=== PATIENT | female | born 1960 | race Caucasian/White ===

== ENCOUNTER 2019-01-01 14:15 | Emergency (ER) | payer MEDICAID ==
[2019-01-01 14:16] VITALS: BMI 29.8
[2019-01-01 14:35] VITALS: TEMP 98.5
[2019-01-01] MEDS ORDERED: Albuterol 0.083% Inhal Sol (2.5 mg/3 mL) UD INH STA (15:10)
--- NOTE | 2019-01-01 15:15 | ED PDOC ---
Arrival/HPI - General Chief Complaint: Flu-like Symptoms Time Seen by Provider: 01/01/19 14:16 Historian: Patient - History of Present Illness Narrative History of Present Illness (Text): 01/01/19 15:11 Patient is a 58-year-old female with a past medical history significant for rheumatoid arthritis. Presenting to [facility] on January 01, 2019 with complaints of flu like symptoms. Patient reports onset approximately two weeks ago denies any sick contact. She reports complaints of headaches, shortness of breath productive cough with clear sputum, Arthralgias, chills. Reports some episodes of associated nausea. Denies any sore throat, fevers. Reminder 12 system review of systems otherwise negative. She has not seen any other physicians at this time, has not had any outpatient follow-up, has not received any outpatient treatment. Denies any childhood history of asthma. Past Medical History - Provider Review Nursing Documentation Reviewed: Yes - Past History Past History: No Previous - Infectious Disease Hx of Infectious Diseases: None - Reproductive Menopause: Yes - Cardiac Hx Cardiac Disorders: No - Psychiatric Hx Depression: Yes Hx Emotional Abuse: No Hx Physical Abuse: No Hx Substance Use: No - Past Surgical History Past Surgical History: Non-Contributing - Anesthesia Hx Anesthesia: No - Suicidal Assessment Feels Threatened In Home Enviroment: No Family/Social History - Physician Review Nursing Documentation Reviewed: Yes Family/Social History: Unknown Family HX Smoking Status: Unknown If Ever Smoked Hx Alcohol Use: No Hx Substance Use: No Hx Substance Use Treatment: No Allergies/Home Meds Allergies/Adverse Reactions: Allergies No Known Allergies Allergy (Verified 01/12/13 16:55) Home Medications: Home Meds Medication Instructions Recorded Confirmed Gabapentin 0 mg PO 01/12/13 01/12/13 Sertraline HCl [Sertraline] 0 mg PO 01/12/13 01/12/13 Review of Systems - Review of Systems Constitutional: Normal. absent: Fevers Eyes: Normal ENT: Normal Respiratory: SOB, Cough, Sputum Gastrointestinal: Nausea Musculoskeletal: Arthralgias Skin: Normal Neurological: Headache Endocrine: Normal Hemo/Lymphatic: Normal Psychiatric: Normal Physical Exam Vital Signs Reviewed: Yes Vital Signs Temp Pulse Resp BP Pulse Ox 01/01/19 14:29 98.5 F 82 20 135/78 100 Temperature: Afebrile Blood Pressure: Normal Pulse: Regular Respiratory Rate: Normal Appearance: Positive for: Well-Appearing, Non-Toxic Pain Distress: None Mental Status: Positive for: Alert and Oriented X 3 - Systems Exam Head: Present: Atraumatic, Normocephalic, Tenderness (L maxillary sinus tap tenderness) Pupils: Present: PERRL Extroacular Muscles: Present: EOMI Ears: Present: Normal Mouth: Present: Moist Mucous Membranes Pharnyx: Present: Normal Neck: Present: Lymphadenopathy Respiratory/Chest: Present: Clear to Auscultation, Good Air Exchange. No: Respiratory Distress Cardiovascular: Present: Normal S1, S2. No: Murmurs Abdomen: Present: Normal Bowel Sounds. No: Tenderness Upper Extremity: Present: Normal Inspection Lower Extremity: Present: Normal Inspection, NORMAL PULSES Neurological: Present: GCS=15, CN II-XII Intact Skin: Present: Warm, Dry, Normal Color Psychiatric: Present: Alert, Oriented x 3 Medical Decision Making ED Course and Treatment: 01/01/19 15:21 Will perform rapid flu test, CBC, CMP, chest x-ray. breathing treatment mucolytic supportive care Will reassess after. 01/01/19 17:13 CBC, CMP unremarkable Rapid flu negative Chest x-ray reported as no active cardio pulmonary disease Most likely viral upper respiratory tract infection, viral sinusitis Will discharge patient home Recommend supportive care Tylenol, cough suppressant, mucolytic, rest hydration Tamiflu x 5days Re-evaluation Time: 17:17 Reassessment Condition: Unchanged - RAD Interpretation Narrative RAD Interpretations (Text): 01/01/19 17:18 cxr unremarkable Radiology Orders: 01/01/19 15:10 CHEST PORTABLE [RAD] Stat Disposition/Present on Arrival - Present on Arrival Any Indicators Present on Arrival: No History of DVT/PE: No History of Uncontrolled Diabetes: No Urinary Catheter: No History of Decub. Ulcer: No History Surgical Site Infection Following: None - Disposition Have Diagnosis and Disposition been Completed?: No Diagnosis: URI (upper respiratory infection), Sinusitis, Viral infection Disposition: HOME/ ROUTINE Disposition Time: 17:19 Condition: STABLE Discharge Instructions (ExitCare): Viral Syndrome (DC), Sinusitis, Adult (DC), Viral Upper Respiratory Infection, Adult (DC) Prescriptions: Oseltamivir Phosphate [Tamiflu] 75 mg PO BID #10 capsule Referrals: Gilbert Musa MD [Primary Care Provider] - Follow up with primary Forms: [employer] (Congolese)
[2019-01-01 16:07] LABS: BASO # 0.03 K/mm3 (0.0-2.0); BASO % 0.4 % (0.0-3.0); EOS # 0.3 (0.0-0.7); EOS % 4.8 % (1.5-5.0); HEMOGLOBIN 14.1 g/dL (12.0-16.0); LYMPH # 3.2 (1.2-3.4); LYMPH % 46.5 % (22.0-35.0); MEAN CELL VOLUME 86.4 fl (80.0-105.0); MEAN CORPUSCULAR HEMOGLOBIN 28.5 pg (25.0-35.0); MEAN PLATELET VOLUME 10.6 fl (7.0-11.0); MONO # 0.3 (0.1-0.6); MONO % 4.2 % (1.0-6.0); RBC 4.94 10^6/uL (3.5-6.1); RED CELL DISTRIBUTION WIDTH 13.1 % (11.5-14.5); WHITE BLOOD COUNT 6.9 10^3/uL (4.5-11.0)
[2019-01-01 16:14] LABS: ALB/GLOB RATIO 1.2 (1.1-1.8); ALBUMIN 4.7 g/dL (3.0-4.8); ALT/SGPT 20 U/L (7-56); AST/SGOT 32 U/L (14-36); BLOOD UREA NITROGEN 11 mg/dL (7-21); CALCIUM 9.9 mg/dL (8.4-10.5); GFR NON-AFRICAN AMERICAN > 60
--- NOTE | 2019-01-01 16:45 | RAD ---
Date of service: 01/01/2019 HISTORY: sob/ cough COMPARISON: No prior. FINDINGS: LUNGS: No active pulmonary disease. PLEURA: No significant pleural effusion identified, no pneumothorax apparent. CARDIOVASCULAR: No atherosclerotic calcification present No radiographic findings to suggest acute or significant cardiovascular disease. OSSEOUS STRUCTURES: No significant abnormalities. VISUALIZED UPPER ABDOMEN: Normal. OTHER FINDINGS: None. IMPRESSION: No active disease.
[2019-01-01] MEDS ORDERED: guaiFENesin DM 200 mg-20 mg/10 ml UD PO STA (16:50)
[2019-01-01 17:53] VITALS: BP 139/87; PULSE 81; RESP 18; O2SAT 97
== END 2019-01-01 17:54 | disposition home or self-care (01) ==
LOC: ED 14:15
DX: J32.9 Chronic sinusitis, unspecified (principal); J06.9 Acute upper respiratory infection, unspecified; M06.9 Rheumatoid arthritis, unspecified